=== PATIENT | male | born 1990 | race African-American/Black ===

== ENCOUNTER 2017-05-06 18:50 | Emergency (ER) | payer BC ==
[~2017-05-06] VITALS: Ht 182.9 cm; Wt 96.6 kg
[2017-05-06 19:33] VITALS: Ht 182.9 cm; Wt 96.6 kg
[2017-05-06 21:24] VITALS: BP 113/78
== END 2017-05-06 21:24 | disposition home or self-care (01) ==
LOC: ED 18:50
DX: S01.511A Laceration without foreign body of lip, initial encounter (principal); Z88.2 Allergy status to sulfonamides; W26.9XXA Contact with unspecified sharp object(s), initial encounter; Y93.67 Activity, basketball; Y92.89 Other specified places as the place of occurrence of the external cause; Y99.8 Other external cause status
CPT/HCPCS: 90715